=== PATIENT | male | born 1990 | race Caucasian/White ===

== ENCOUNTER 2018-12-08 22:17 | Emergency (ER) | payer OTHER ==
[~2018-12-08] VITALS: Ht 185.4 cm; Wt 102.4 kg
[2018-12-08 22:19] VITALS: BP 141/88
[2018-12-08] MEDS ORDERED: ONDANSETRON ODT 4 MG PO ONE (23:00)
[2018-12-08] MEDS ORDERED: ONDANSETRON ODT 4 MG ONE (23:02)
[2018-12-08 23:27] LABS: MICROSCOPIC AUTO
[2018-12-08 23:29] LABS: CULTURE INDICATED? YES
--- NOTE | 2018-12-08 23:51 | NUR ---
PT RESTING IN BED WITH FAMILY AT PT SIDE, A/O X4 AND SPEAKING FULL SENTENCES.
[2018-12-08 23:52] LABS: BASOPHILS # (AUTO) 0.01 x10^3/uL (0-0.1); BASOPHILS % (AUTO) 0 % (0-1); EOSINOPHILS # (AUTO) 0.21 x10^3/uL (0-0.4); EOSINOPHILS % (AUTO) 2 % (1-7); LYMPHOCYTES # (AUTO) 1.21 x10^3/uL (1-3.4); LYMPHOCYTES % (AUTO) 11 % (22-44); MD NO; MEAN CORPUSCULAR HEMOGLOBIN 30.8 pg (27.5-34.5); MEAN CORPUSCULAR HGB CONC 33.7 g/dL (33.2-36.2); MEAN CORPUSCULAR VOLUME 91.3 fL (81-97); MEAN PLATELET VOLUME 9.8 fL (7.4-10.4); MONOCYTES # (AUTO) 0.59 x10^3/uL (0.2-0.8); MONOCYTES % (AUTO) 5 % (2-9); NEUTROPHILS # (AUTO) 9.39 x10^3/uL (1.8-6.8); NEUTROPHILS % (AUTO) 82 % (42-75); PLATELET COUNT 224 x10^3/uL (130-400); RED BLOOD COUNT 5.94 x10^6/uL (4.38-5.82); RED CELL DISTRIBUTION WIDTH 13.4 % (9.4-14.8)
[2018-12-08 23:57] LABS: ALANINE AMINOTRANSFERASE 34 U/L (12-78); ALBUMIN 4.2 g/dL (3.4-5.0); ANION GAP 10 mmol/L (5-15); CHLORIDE 107 mmol/L (98-107); CREATININE 0.87 mg/dL (0.7-1.3)
[2018-12-09] LABS: ALKALINE PHOSPHATASE 80 U/L (45-117); BILIRUBIN,TOTAL 0.5 mg/dL (0.2-1.0); TOTAL PROTEIN 7.7 g/dL (6.4-8.2)
== END 2018-12-09 00:53 | disposition home or self-care (01) ==
LOC: ED 12-09 00:30
DX: K29.00 Acute gastritis without bleeding (principal); F17.200 Nicotine dependence, unspecified, uncomplicated
CPT/HCPCS: 36415; 76700; 80053; 81001; 83690; 85025; 87086; 99284; Q0162

== ENCOUNTER 2020-04-12 13:22 | Emergency (ER) | payer OTHER ==
[~2020-04-12] VITALS: Ht 185.4 cm; Wt 113.7 kg
[2020-04-12 13:35] VITALS: BP 140/103
--- NOTE | 2020-04-12 15:11 | NUR ---
Patient states that he jumped over his own fence, landed ont he right foot, now has mild edema and right foot plantar pain.
--- NOTE | 2020-04-12 15:16 | NUR ---
foot mild non pitting edema compared to left. pain at the 4th metatarsal plantar surface with palpation.
== END 2020-04-12 16:57 | disposition home or self-care (01) ==
LOC: ED 16:20
DX: S90.31XA Contusion of right foot, initial encounter (principal); X50.1XXA Overexertion from prolonged static or awkward postures, initial encounter; Y93.89 Activity, other specified; Y92.038 Other place in apartment as the place of occurrence of the external cause; Y99.8 Other external cause status
CPT/HCPCS: 99283